=== PATIENT | male | born 2000 | race Caucasian/White ===

== ENCOUNTER 2021-01-14 14:05 | Emergency (ER) | payer OTHER, MEDICAID ==
[~2021-01-14] VITALS: Ht 175.3 cm; Wt 141.0 kg
[~2021-01-14 14:05] MED LIST: DIPH-423 PO
[2021-01-14 15:06] VITALS: BP 146/109
[2021-01-14] MEDS ORDERED: ibuprofen 200mg tablet PO ONE (15:15)
[2021-01-14] MEDS ORDERED: ibuprofen tablet 400 MG TABLET PO ONE (15:15)
--- NOTE | 2021-01-14 15:49 | NUR ---
awaiting xray results.
== END 2021-01-14 18:17 | disposition home or self-care (01) ==
LOC: ER 14:05
DX: M25.512 Pain in left shoulder (principal); Z79.899 Other long term (current) drug therapy; V23.4XXA Motorcycle driver injured in collision with car, pick-up truck or van in traffic accident, initial encounter; Y93.89 Activity, other specified; Y92.89 Other specified places as the place of occurrence of the external cause; Y99.8 Other external cause status
CPT/HCPCS: 71045; 73030; 99284

== ENCOUNTER 2023-04-04 08:39 | Day surgery (SDC) | payer MEDICAID ==
[2023-04-02 11:56] LABS: BILIRUBIN,URINE NEGATIVE (Neg); CLARITY,URINE CLEAR (Clear); COLOR,URINE YELLOW (Yellow); GLUCOSE, URINE NEGATIVE (Neg); KETONES,URINE NEGATIVE (Neg); LEUKOCYTE ESTERASE ,URINE NEGATIVE (Neg); NITRITES, URINE NEGATIVE (Neg); OCCULT BLOOD,URINE NEGATIVE (Neg); PROTEIN,URINE NEGATIVE (Neg); UROBILINOGEN,URINE 0.2 E.U/dL (0.2-1.0)
[2023-04-02 11:59] LABS: BASOPHILS % (AUTO) 0.4 % (0-1); EOSINOPHILS # (AUTO) 0.2 X10'3 (0-0.9); EOSINOPHILS % (AUTO) 3.5 % (0-6); LYMPHOCYTES # (AUTO) 1.6 X10'3 (1.1-4.8); LYMPHOCYTES % (AUTO) 24.2 % (21-51); MEAN CORPUSCULAR HEMOGLOBIN 33.8 PG (27.0-31.0); MEAN CORPUSCULAR HGB CONC 35.2 g/dL (33.0-36.5); MONOCYTES # (AUTO) 0.7 X10'3 (0-0.9); MONOCYTES % (AUTO) 10.7 % (2-12); NEUTROPHILS # (AUTO) 4.1 X10'3 (1.8-7.7); NEUTROPHILS % (AUTO) 61.2 % (42-75); PRE OP HEMATOCRIT 46.8 % (42.0-52.0); PRE OP HEMOGLOBIN 16.5 g/dL (14.0-17.9); PRE OP PLATELET COUNT 247 X10'3 (140-440); PRE OP WHITE BLOOD COUNT 6.7 10'3 (4.8-10.8); RED BLOOD COUNT 4.87 X10'6 (4.70-6.10); RED CELL DISTRIBUTION WIDTH 12.2 % (11.5-14.5)
[2023-04-02 12:02] LABS: UA COLLECTION TYPE CLN CATCH MIDSTREAM
[2023-04-02 12:12] LABS: ALBUMIN 3.7 G/DL (3.4-5.0); ALBUMIN/GLOBULIN RATIO 1.2 (1.1-1.5); ALKALINE PHOSPHATASE 84 IU/L (46-116); BLOOD UREA NITROGEN 13 MG/DL (7-18); BUN/CREATININE RATIO 16.3 (10.0-20.0); CALCIUM 8.4 MG/DL (8.5-10.1); CHLORIDE 107 MMOL/L (99-107); PRE OP ALT 26 U/L (30-65); PRE OP ANION GAP 8 (8-16); PRE OP AST 14 U/L (10-37); PRE OP BILIRUB, TOTAL 0.4 MG/DL (0.0-1.0); PRE OP GLUCOSE 89 MG/DL (70-104); PRE OP POTASSIUM 3.7 MMOL/L (3.4-5.1); PRE OP SODIUM 143 MMOL/L (135-145); TOTAL CARBON DIOXIDE 27.8 MMOL/L (24-32); TOTAL PROTEIN 6.8 G/DL (6.4-8.2); eGFR > 90 ML/MIN
[~2023-04-04] VITALS: Ht 180.3 cm; Wt 134.7 kg
[2023-04-04] VITALS (10 sets, daily range): BP systolic 127–169; BP diastolic 56–101; PULSE 57–95; RESP 12–24; TEMP 97.7; O2SAT 94–99
[~2023-04-04 08:39] MED LIST changes: -DIPH-423 PO; +NO HOME MEDS; +ceFAZolin inj. 3,000 MG in normal saline 100ml IV soln 100 ML IV ONE; +famotidine 20mg tablet PO ONE; +ringers solution, lacted 1,000 ML IV SCH
[2023-04-04] MEDS ORDERED: BUPIVAcaine/PF 2.5 mg/ml (0.25%) 30ml vial ONE (11:52)
[2023-04-04] MEDS ORDERED: midazolam 1 mg/ML 2ml injection ONE (11:55)
[2023-04-04] MEDS ORDERED: sevoflurane 250ml liquid IH ONE (11:56)
[2023-04-04] MEDS ORDERED: labetalol 20mg/4ml (5mg/ml) syringe IV PRN (12:00)
[2023-04-04] MEDS ORDERED: hydrALAZINE 20mg/ml inj. IV PRN (12:00)
[2023-04-04] MEDS ORDERED: proCHLORperazine 10 MG/2 ml inj IV PRN (12:00)
[2023-04-04] MEDS ORDERED: ketorolac trometh. 30mg/ml inj. IV ONE (12:00)
[2023-04-04] MEDS ORDERED: ondansetron/PF 4mg/2ml inj IV PRN (12:00)
[2023-04-04] MEDS ORDERED: meperidine/PF 25mg/ml syringe IV PRN ×3 (12:00)
[2023-04-04] MEDS ORDERED: morphine 4 MG/ML inj SYRINge IV PRN (12:00)
[2023-04-04] MEDS ORDERED: ringers solution, lacted 1,000 ML IV SCH (12:00)
[2023-04-04] MEDS ORDERED: acetaminophen 1,000mg/100ml IV 100 ML IV PRN (12:00)
[2023-04-04] MEDS ORDERED: morphine 2 MG/ML inj. syringe IV PRN (12:00)
[2023-04-04] MEDS ORDERED: propofol inj 20 ML IV ONE ×3 (12:20→13:37)
[2023-04-04] MEDS ORDERED: fentaNYL /PF 50mcg/ml 5ml ampule ONE (12:20)
[2023-04-04] MEDS ORDERED: dexamethasone sod phosphate 4mg/ml inj. ONE (12:20)
[2023-04-04] MEDS ORDERED: rocuronium 10mg/ml inj IV ONE ×2 (12:20→13:25)
[2023-04-04] MEDS ORDERED: ondansetron/PF 4mg/2ml inj ONE (12:20)
[2023-04-04] MEDS ORDERED: BUPIVAcaine/PF 2.5 mg/ml (0.25%) 30ml vial IJ ONE ×2 (12:38→13:28)
[2023-04-04] MEDS ORDERED: LIDOcaine 2% (20mg/ml) 5ml vial ONE (13:25)
[2023-04-04] MEDS ORDERED: morphine 10mg/ml inj. ONE (13:37)
[2023-04-04] MEDS ORDERED: glycopyrrolate 0.2mg/ml inj ONE (13:37)
[2023-04-04] MEDS ORDERED: neostigmine methylsulfate 1 MG/ML 10ml vial ONE (13:37)
--- NOTE | 2023-04-04 13:47 | NUR ---
Received from OR via [g [id number]], accompanied by Anesthesiologist [] and report given by Anesthesiolgist.
[2023-04-04] MEDS ORDERED: traMADol 50MG tablet PO ONE (14:50)
--- NOTE | 2023-04-04 15:07 | NUR ---
PT MEETS DISCHARGE CRITERIA, UP INDEP'LY TO VOID, IV REMOVED, VSS, MILD PAIN, INSTRUCTIONS REVIEWED WITH PT AND WRITTEN INSTRUCTIONS SENT HOME WITH PT, LAP SITES CD, RADHA FLUIDS.
== END 2023-04-04 15:07 | disposition home or self-care (01) ==
LOC: PAS 08:39
PROVIDERS: ATTEND Surgery
DX: K40.91 Unilateral inguinal hernia, without obstruction or gangrene, recurrent (principal); D17.6 Benign lipomatous neoplasm of spermatic cord; E66.9 Obesity, unspecified; Z68.41 Body mass index [BMI] 40.0-44.9, adult; Z98.890 Other specified postprocedural states; Z79.899 Other long term (current) drug therapy; Z83.6 Family history of other diseases of the respiratory system
CPT/HCPCS: 36415; 49651; 80053; 81003; 82948; 85025; C1781; J0131; J0690; J1100; J1885; J2175; J2250; J2274; J2405; J2704; J2710; J3010; J3490; J7030; J7120; S2900; Z7506; Z7508; Z7512; A4215; A4618; C1758